=== PATIENT | female | born 1955 | race Caucasian/White ===

== ENCOUNTER 2025-06-25 06:21 | Day surgery (SDC) | payer MEDICARE, OTHER, SELFPAY | END 2025-06-25 14:26 | disposition home or self-care (01) | LOC: GI 06:21 | PROVIDERS: ATTENDING PHYSICIAN Internal Medicine Gastroenterology | DX: K57.30 Diverticulosis of large intestine without perforation or abscess without bleeding (principal); K64.8 Other hemorrhoids; K64.4 Residual hemorrhoidal skin tags; Z83.719 Family history of colon polyps, unspecified | CPT/HCPCS: G0105 ==